=== PATIENT | male | born 1990 | race Caucasian/White ===

== ENCOUNTER 2024-06-18 12:25 | Outpatient (AMB) | payer OTHER, SELFPAY ==
--- NOTE | 2024-06-18 12:28 | MHC.PC.OV ---
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 Allergies No Known Allergies Allergy (Verified 06/18/24 12:30) Medication List - Last Reconciled 06/18/24 by MARY [facility] No Known Home Meds Tobacco use date assessed: 06/18/24 Dental Screening Dental Screen Date: 06/18/24 Did you have a dental visit in the last 12 months?: Yes Did you have a dental problem in the last 6 months where you did not have access to dental care?: No Was dental information given to patient?: Patient has dentist HPI HPI Comments History of Present Illness Details 34-year-old male with family hx skin cancer (dad) Surgery: none Family hx: Dad w/ skin cancer 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 Health Maintenance: Flu admin today Tdap admin today Specialists: Uro Here today as new patient, to est care and for CPE. Previous PCP Dr Dixon - has not been seen in years. no records available to me today Wants uro referral, in September treated for balanitis with oral fluconazole. This did not completely remedy it. He went back to an urgent care fairly recently and had gonorrhea and chlamydia testing what she reports was negative. He was given another oral antifungal or so he thinks. He continues to have the symptoms. He has been applying Vaseline. Otherwise he denies any urinary complaints. Ears - would like hearing test; he is exposed to noise (in band), + tinnitus Optho reports normal w/o glasses. Exam General: Well developed, well nourished, in no acute distress. Appears stated age. Head: Normocephalic, atraumatic. Eyes: Pupils are equal, round and reactive to light and accommodation. Conjunctivae are clear. Vision grossly normal. Ears: TMs clear AU, EACS WNL Nose: Patent, without discharge. Mouth: There are no ulcers or lesions noted. No inflammation, no post nasal drip, no plaques nor exudates. Neck: Supple, no adenopathy or thyromegaly. Lungs: Clear to auscultation bilaterally. No rales, rhonchi or wheeze noted. Good air flow in all cooper. Heart: Regular rate and rhythm. No murmurs, click, rubs or gallops are noted. Abdomen: Bowel sounds present in all quadrants. The abdomen is soft, nontender, with no masses or organomegaly noted. No hernias are noted. 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 Range of motion is observed to be normal. Pulses: Peripheral pulses are equal and palpable bilaterally. Extremities: No clubbing, cyanosis nor edema is noted. Neurologic: Gait and station normal. Cranial Nerves 2-12 intact. Motor strength grossly symmetrical and intact. No sensory loss. Balance normal. Skin: No rashes, ulcers, or lesions noted. Turgor is good. Skin color is good. Hair and nails are without abnormalities. Psych: Normal eye contact, affect and mood appropriate, and normal interactions. Patient is alert and appropriate to context. Plan: Start topical clotrimazole 1% to treat the balanitis b.i.d. times 14 days and refer to Urology. Reviewed STD exposure and screening, patient declined stating that he has had reason STD screening at a walk-in clinic and [place]. Refer to audiology for a hearing test. Refer to dermatology for a skin check given family history of skin cancers infrequent moles. Routine screening labs today. Tdap and influenza administered today. Check with the pharmacy to see if you are due for any other HPV vaccines. Return to the office in 1 year for complete physical exam or sooner should you need anything PFSH Medical History (Updated 06/18/24 @ 15:51 by CHERYL Araujo) No pertinent family history No pertinent past medical history Surgical History (Updated 06/18/24 @ 12:35 by Mgiuel A Logan MA) No pertinent past surgical history Social History (Updated 06/18/24 @ 12:35 by Miguel A Logan MA) Household Members: Family Housing: House Are you a primary home health caregiver to a significant other at home: No Do you presently have visiting nurse or other home services: No Alcohol intake: current Alcohol intake frequency: a few times a month Patient Tobacco Use Status: Never used Tobacco e-Cigarette/Vaping Use: Never Used Second Hand Smoke Exposure: No Current occupational status: employed 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 1. Little interest or pleasure in doing things: not at all 2. Feeling down, depressed, or hopeless: not at all 3. Trouble falling or staying asleep, or sleeping too much: not at all 4. Feeling tired or having little energy: not at all 5. Poor appetite or overeating: not at all 6. Feeling bad about yourself - or that you are a failure or have let yourself or your family down: not at all 7. Trouble concentrating on things, such as reading the newspaper or watching television: not at all 8. Moving or speaking so slowly that other people could have noticed. Or the opposite - being so fidgety or restless that you have been moving around a lot more than usual: not at all 9. Thoughts that you would be better off or of hurting yourself in some way: not at all Total score: 0 Depression Screening Interpretation: Negative Depression Screening Done: Yes 61955 - PHQ-9 Billing: Yes Source: Developed by Drs. Morgan Scales, Yesenia Siddiqui, Duran Ang and colleagues, with an educational loraine from [employer]. Thrive Questionnaire Date Thrive assessed: 06/18/24 I am a: Patient What is your living situation today?: I have a steady place to live Within the past 12 months, did the food you bought not last and you didn't have the money to get more?: Never true Within the past 12 months, did you worry whether your food would run out before you got money to buy more?: Never true Do you have trouble paying for medicines?: No Do you have trouble getting transportation to medical appointments?: No Do you have trouble paying your heating and electricity bill?: No Do you have trouble taking care of your child, family member or friend?: No Do you have trouble with day-to-day activities such as bathing, preparing meals, shopping, managing finances, etc.?: No Are you currently unemployed and looking for a job?: No Are you interested in more education?: No Please select the resources that you would like help with: None Currently or been in a relationship where the following occur: No concerns reported THRIVE Score: 0 AUDIT C Alcohol Use Questionnaire (AUDIT-C) 1. How often do you have a drink containing alcohol?: 2-4 times a month 2. How many drinks containing alcohol do you have on a typical day when you are drinking?: 1 or 2 3. How often do you have six or more drinks on one occasion?: Never Total Score: 2 DOUGLAS-7 AMB Questionnaire DOUGLAS-7 Date DOUGLAS - 7 assessed: 06/18/24 Feeling nervous, anxious, or on edge: 0 = Not at all Not being able to stop or control worryin = Not at all Worrying too much about different things: 0 = Not at all Trouble relaxin = Not at all Being so restless that it is hard to sit still: 0 = Not at all Becoming easily annoyed or irritable: 0 = Not at all Feeling afraid as if something awful might happen: 0 = Not at all Total DOUGLAS-7 score (0-4 normal; 5-9 mild; 10-14 moderate; 15-21 severe): 0 Source: Developed by Drs. Morgan Scales, Yesenia Siddiqui, Duran Ang and colleagues, with an educational loraine from [employer]. DOUGLAS-7 Assessment Billing DOUGLAS-7 Assessment Tool: DOUGLAS-7 Assessment 81470 Physical exam (Primary Care) Vital Signs: Last Vital Signs Temp 97.1 F 06/18/24 12:36 Pulse 56 06/18/24 12:36 Resp 12 06/18/24 12:36 BP 113/70 06/18/24 12:36 Pulse Ox 99 06/18/24 12:36 Oxygen Delivery Method Room Air 06/18/24 12:36 BMI result Body Mass Index 22.5 Tobacco/Smoking Status: Tobacco use Status Tobacco use date assessed 06/18/24 06/18/24 12:38 Patient Tobacco Use Status Never used Tobacco 06/18/24 12:38 e-Cigarette/Vaping Use Never Used 06/18/24 12:38 PHQ-9: PHQ-9 Score PHQ-9: Total score 0 06/18/24 13:31 Depression Screening Interpretation: Negative Thrive Assessment: Date of Thrive Assessment Date Thrive assessed 06/18/24 06/18/24 12:30 Currently or been in a relationship where the following occur: No concerns reported Office Procedures Flu Questionnaire Does the patient have a severe egg allergy?: No Does the patient have severe life threatening allergies?: No Does the patient have a fever or illness today?: No Has the patient ever had Guillain-Tooele Syndrome?: No Has the patient ever had any past reaction to a flu shot?: No Immunizations Fluarix Triv 4555-0032 (PF) 45 mcg (15 mcg x 3)/0.5 mL IM syringe Performing Provider: KOJO Araujo Performing Location: [facility] Administered by: Kalyani Lemos CMA on 06/18/24 13:31 Dose Route Admin Location Dispensed Lot Number Expiration Date [facility] [employer] Seiner 0.5 mL IM Left Deltoid 0.5 mL [id number] 11/17/24 [id number] [employer] VIS Given Date VIS Provided VIS Publication Date 06/18/24 Single Vaccine 20 Eligibility Eligibility Date Funding Source Not VFC Eligible 06/18/24 Private Boostrix Tdap 2.5 Lf unit-8 mcg-5 Lf/0.5 mL intramuscular syringe Performing Provider: KOJO Araujo Performing Location: [facility] Administered by: Kalyani Lemos CMA on 06/18/24 13:31 Dose Route Admin Location Dispensed Lot Number Expiration Date [facility] [employer]iner 0.5 mL IM Left Deltoid 0.5 mL [id number] 06/11/26 [id number] [employer] VIS Given Date VIS Provided VIS Publication Date 06/18/24 Single Vaccine 20 Eligibility Eligibility Date Funding Source Not VFC Eligible 06/18/24 Private Coding Level of Care Code New Pt Prev Care 18-39yr(17272 Diagnoses Encounter for general adult medical examination without abnormal findings Z00.00 Need for Tdap vaccination Z23 Influenza vaccination administered at current visit Z23 Balanitis N48.1 Atypical mole D22.9 Family history of skin cancer Z80.8 Tinnitus of both ears H93.13 Laterality: bilateral Laboratory exam ordered as part of routine general medical examination Z00.00 Additional Codes DOUGLAS-7 Assessment Billing - DOUGLAS-7 Assessment Tool: DOUGLAS-7 Assessment 65641 ([id number]) PHQ-9 - 77984 - PHQ-9 Billing: Yes ([id number]) Assessment & Plan Assessment & Plan (1) Encounter for general adult medical examination without abnormal findings: Code(s): Z00.00 - Encounter for general adult medical examination without abnormal findings (2) Need for Tdap vaccination: Code(s): Z23 - Encounter for immunization Category: Medical (3) Influenza vaccination administered at current visit: Code(s): Z23 - Encounter for immunization Category: Medical (4) Balanitis: Code(s): N48.1 - Balanitis Category: Medical (5) Atypical mole: Code(s): D22.9 - Melanocytic nevi, unspecified Category: Medical (6) Family history of skin cancer: Comment: dad Code(s): Z80.8 - Family history of malignant neoplasm of other organs or systems Category: Medical (7) Tinnitus: Code(s): H93.19 - Tinnitus, unspecified ear Category: Medical Qualifiers: Laterality: bilateral Qualified Code(s): H93.13 - Tinnitus, bilateral (8) Laboratory exam ordered as part of routine general medical examination: Code(s): Z00.00 - Encounter for general adult medical examination without abnormal findings Category: Medical Plan . Orders: Orders Comprehensive Met. Panel Today Z00.00 - Encounter for general adult medical examination without abnormal findings Microalbumin, Random (w Creat) Today Z00.00 - Encounter for general adult medical examination without abnormal findings TSH reflex Free T4 Today Z00.00 - Encounter for general adult medical examination without abnormal findings Vitamin B12 and Folate Today Z00.00 - Encounter for general adult medical examination without abnormal findings Complete Blood Count no Diff Today Z00.00 - Encounter for general adult medical examination without abnormal findings Hemoglobin A1c Today Z00.00 - Encounter for general adult medical examination without abnormal findings Lipid Panel Today Z00.00 - Encounter for general adult medical examination without abnormal findings Influenza 2490-3001 Immunization Today Z23 - Encounter for immunization TDaP Immunization Today Z23 - Encounter for immunization Referrals Urology Referral N48.1 - Balanitis Audiology Referral H93.19 - Tinnitus, unspecified ear Dermatology Referral D22.9 - Melanocytic nevi, unspecified, N48.1 - Balanitis, Z80.8 - Family history of malignant neoplasm of other organs or systems Medications: New clotrimazole 1% 1 appl topical BID 45 grams 0RF 14 days Patient Instructions: Walk-In Care (Urgent Care): We Make it Easy Walk-in for urgent medical issues such as: ? Seasonal Allergies ? Insect Bites ? Cough ? Diarrhea ? Acute Asthma Attacks ? Back, Knee or Joint Pain ? Ear Infection ? Fever without a Rash ? Headaches ? Nausea ? [place] [facility], Rash or Skin Irritation ? Sore Throat ? Sports Physicals ? Vomiting Most insurances are accepted. Patients do not need to be part of the [facility] to seek care at the walk-in clinic. Locations [address] [place] [address] [place] [address] ? [phone] [facility] in [place] provides services to ages 18 and over. Open Sunday-Sunday: 8 a.m. to 5 p.m. and Sunday: 9 a.m. to 3 p.m.* *Hours may vary due to staffing availability. To confirm Walk-In Care hours in [place], please call [phone]. [address] [place] [address] ? [phone] [facility] in [place] provides services to ages 12 and over. Open Sunday-Sunday: 8 a.m. to 5 p.m. Hours may vary due to staffing availability. To confirm Walk-In Care hours in [place], please call [phone]. LABORATORY SERVICES: [facility] ? Primary Location [address] [place] [address] Sunday through Sunday 6:00 AM ? 5:00 PM Sunday 7:00 AM ? 11:00 AM* [phone] The [facility] is centrally located near the front entrance of the [facility] for easy outpatient access. Convenient parking is provided for outpatients. *Hours may vary due to staffing availability. To confirm Laboratory hours for any location, please call [phone]. Offsite Location For your convenience, we offer offsite laboratory draw stations at the following locations: [address] [place], [place] [address] ? [facility] [address], [address], [place] Sunday through Sunday 7:30 AM ? 1:00 PM* [phone] *Hours may vary due to staffing availability. To confirm Laboratory hours for any location, please call [phone]. [place] ? [facility] [address] [facility], [place] Sunday through Sunday 6:00 AM ? 3:30 PM* Sunday 6:30 AM ? 3 PM* [phone] *Hours may vary due to staffing availability. To confirm Laboratory hours for any location, please call [phone]. [address] [facility] Sunday through Sunday 7:30 AM ? 4:00 PM* [phone] *Hours may vary due to staffing availability. To confirm Laboratory hours for any location, please call [phone] [place] [address] Sunday through 9:00 AM ? 4:00 PM* *Hours may vary due to staffing availability. To confirm Laboratory hours for any location, please call [phone]. Appointments are not necessary. Walk-ins are welcome. Like all the departments throughout the [facility], our Lab undergoes frequent reviews to ensure the quality and accuracy of test results, and our staff takes special pride in its status as a nationally accredited facility. Patient Portal: ONE PATIENT. ONE RECORD. BETTER CARE. [facility] has a fully integrated, cutting-edge mobile electronic health information system that has revolutionized the way we care for our patients and manage our organization. This system improves communication and coordination enabling us to provide safe, higher-quality care, and an overall positive experience for staff and patients. Our first priority, as always, is to deliver the highest quality care possible. The system is running in the background supporting that priority. This portal is for all [facility] services and practices. If you are experiencing any technical difficulties with enrolling or logging into the Patient Portal please complete the [facility] Patient Portal Technical Support Form. [facility] now offers a new secure on-line interactive tool for patients to review their health information ? ?Patient Portal. This interactive web portal will enable patients and their families to take an active role in their care by providing easy, secure access to their health information via the internet. The Patient Portal provides patients with instant access to their health information, including laboratory results, medications, allergies, demographic information, visit history, and more. In addition to managing their own care, parents and health care proxies with authorized consent will appreciate the ability to access the records of those individuals for whom they provide care. Please note: if you wish to gain access (Proxy) to another patient?s portal, you will be required to come to the Medical Records Department in person at [facility]. Both the patient giving proxy access and the proxy will need to provide photo identification and complete the appropriate authorization. The Patient Portal also allows track their appointments online. The [facility] Patient Portal also saves patients time by allowing them to submit updates to their demographic and contact information prior to their visits. Portal email notifications will also alert patients to any new activity on their portal, such as test results and new appointments. In order to initially enroll in the [facility] Patient Portal, you will need to enter some required information including the following: your [facility] Medical Record number your personal home email address name date of Please note: In order to enroll in the [facility] Patient Portal, we need to have your email address on file in your electronic medical record. ?The email address needs to be specific for one person (yourself) in order for your Portal enrollment to be successful. ?You can update your email address in person with our Registration staff when you are registering for a hospital visit. ?Otherwise, you will need to come to the Health Information Management (Medical Records) Department at [facility]. ?We are open from Sunday ? Sunday from 7:30 a.m. ? 4:30 p.m. ?You will be required to present a photo id. Once you have successfully enrolled in the Patient Portal, you will receive a one-time user id and password for the Portal, sent to your email address. ?This will allow you to log into the Patient Portal within 99 hrs and reset your own logon id and password, and define personal security questions. ?Once your permanent login and password have been set, you can log into the [facility] Patient Portal at any time via the blue button above or from the Portal Logon button on any page of the [facility] website. [facility] encourage all of our patients to enroll in Patient Portal as it presents a valuable opportunity for patients and their families to actively participate in their care and stay healthy Welcome to [facility]. ?We look forward to working with you. Health screenings for men You should visit your health care provider regularly, even if you feel healthy. The purpose of these visits is to: Screen for medical issues Assess your risk for future medical problems Encourage a healthy lifestyle Update vaccinations and other preventive care services Help you get to know your provider in case of an illness Information Even if you feel fine, you should still see your provider for regular checkups. These visits can help you avoid problems in the future. For example, the only way to find out if you have high blood pressure is to have it checked regularly. High blood sugar and high cholesterol level also may not have any symptoms in the early stages. Simple blood tests can check for these conditions. There are specific times when you should see your provider or receive specific health screenings. The [place] Preventive Services Task Force publishes a list of recommended screenings. Below are screening guidelines for men ages 40 to 64. BLOOD PRESSURE SCREENING Have your blood pressure checked at least once every year. Watch for blood pressure screenings in your area. Ask your provider if you can stop in to have your blood pressure checked. Ask your provider if you need your blood pressure checked more often if: You have diabetes, heart disease, kidney problems, or are overweight or have certain other health conditions You have a first-degree relative with high blood pressure You are Black Your blood pressure top number is from 120 to 129 mm Hg, or the bottom number is from 70 to 79 mm Hg If the top number is 130 mm Hg or greater or the bottom number is 80 mm Hg or greater, this is considered stage 1 hypertension. Schedule an appointment with your provider to learn how you can lower your blood pressure. Effects of age on blood pressure CHOLESTEROL SCREENING Cholesterol screening should begin at age 35 for men with no known risk factors for coronary heart disease. Repeat cholesterol screening should take place: Every 5 years for men with normal cholesterol levels More often if changes occur in lifestyle (including weight gain and diet) More often if you have diabetes, heart disease, kidney problems, or certain other conditions COLORECTAL CANCER SCREENING If you are under age 45, talk to your provider about getting screened. You may need to be screened if you have a strong family history of colon cancer or polyps. Screening may also be considered if you have risk factors such as a history of inflammatory bowel disease or polyps. If you are age 45 to 75, you should be screened for colorectal cancer. There are several screening tests available: A stool-based fecal occult blood (gFOBT) or fecal immunochemical test (FIT) every year A stool sDNA test every 1 to 3 years Flexible sigmoidoscopy every 5 years or every 10 years with stool testing FIT done every year CT colonography (virtual colonoscopy) every 5 years Colonoscopy every 10 years You may need a colonoscopy more often if you have risk factors for colorectal cancer, such as: Ulcerative colitis A personal or family history of colorectal cancer A history of growths in your colon called adenomatous polyps DENTAL EXAM Go to the dentist once or twice every year for an exam and cleaning. Your dentist will evaluate if you have a need for more frequent visits. DIABETES SCREENING All adults who do not have risk factors for diabetes should be screened starting at age 35 and repeated every 3 years. If you have other risk factors for diabetes, such as a first degree relative with diabetes, overweight or obesity, high blood pressure, prediabetes, or a history of heart disease, you may be tested more often. If you are overweight and have other risk factors, such as high blood pressure and are planning to become , screening is recommended. EYE EXAM Have an eye exam every 2 to 4 years ages 40 to 54 and every 1 to 3 years ages 55 to 64. Your provider may recommend more frequent eye exams if you have vision problems or glaucoma risk. Have an eye exam that includes an examination of your retina (back of your eye) at least every year if you have diabetes. IMMUNIZATIONS Commonly needed vaccines include: Flu shot: get one every year COVID-19 vaccine: ask your provider what is best for you Tetanus-diphtheria and acellular pertussis (Tdap) vaccine: have as one of your tetanus-diphtheria vaccines if you did not receive it as an adolescent Tetanus-diphtheria: have a booster (or Tdap) every 10 years Varicella vaccine: receive 2 doses if you never had chickenpox or the varicella vaccine and were born in 1980 or after Hepatitis B vaccine: receive 2, 3, or 4 doses, depending on your exact circumstances, if you did not receive these as a child or adolescent, until age 59 Shingles (herpes zoster) vaccine: at or after age 50 Ask your provider if you should receive other immunizations, especially if you have certain medical conditions, such as diabetes or are at increased risk for some diseases such as pneumonia. INFECTIOUS DISEASE SCREENING Screening for hepatitis C: all adults ages 18 to 79 should get a one-time test for hepatitis C. Screening for human immunodeficiency virus (HIV): all people ages 15 to 65 should get a one-time test for HIV. Depending on your lifestyle and medical history, you may need to be screened for infections such as syphilis, chlamydia, and other infections. LUNG CANCER SCREENING You should have an annual screening for lung cancer with low-dose computed tomography (LDCT) if: You are age 50 to 80 years AND You have a 20 pack-year smoking history AND You currently smoke or have quit within the past 15 years OSTEOPOROSIS SCREENING If you are age 50 to 64 and have risk factors for osteoporosis, you should discuss screening with your provider. Risk factors can include long-term steroid use, low body weight, smoking, heavy alcohol use, having a fracture after age 50, or a family history of hip fracture or osteoporosis. Osteoporosis PHYSICAL EXAM All adults should visit their provider from time to time, even if they are healthy. The purpose of these visits is to: Screen for diseases Assess risk of future medical problems Encourage a healthy lifestyle Update vaccinations and other preventive care services Maintain a relationship with a provider in case of an illness Your height, weight, and body mass index (BMI) should be checked at every exam. During your exam, your provider may ask you about: Depression and anxiety Diet and exercise Alcohol and tobacco use Safety, such as use of seat belts and smoke detectors Your medicines and risk for interactions PROSTATE CANCER SCREENING If you're 55 through 69 years old, before having the test, talk to your provider about the pros and cons of having a PSA test. Ask about: Whether screening decreases your chance of dying from prostate cancer. Whether there is any harm from prostate cancer screening, such as side effects from testing or overtreatment of cancer when discovered. Whether you have a higher risk of prostate cancer than others. If you are age 55 or younger, screening is not generally recommended. You should talk with your provider about if you have a higher risk for prostate cancer. Risk factors include: Having a family history of prostate cancer (especially a brother or father) Being If you choose to be tested, the PSA blood test is repeated over time (yearly or less often), though the best frequency is not known. Prostate examinations are no longer routinely done on men with no symptoms. Prostate cancer SKIN EXAM Your provider may check your skin for signs of skin cancer, especially if you're at high risk. People at high risk include those who have had skin cancer before, have close relatives with skin cancer, or have a weakened immune system. TESTICULAR EXAM The [place] Preventive Services Task Force (USPSTF) now recommends against performing testicular self-exams. Doing testicular self-exams has been shown to have little to no benefit.
[2024-06-18 12:36] VITALS: BP 113/70; PULSE 56; RESP 12; TEMP 36.2; O2SAT 99; BMI 22.5
== END 2024-06-18 13:29 | disposition home or self-care (01) ==
PROVIDERS: PCP Nurse Practitioner Family; Visit Provider Nurse Practitioner Family
DX: Z00.00 Encounter for general adult medical examination without abnormal findings (principal); Z23 Encounter for immunization; N48.1 Balanitis; D22.9 Melanocytic nevi, unspecified; Z80.8 Family history of malignant neoplasm of other organs or systems; H93.13 Tinnitus, bilateral

== ENCOUNTER → 2024-06-18 12:25 | Outpatient (BNVA) | payer OTHER, SELFPAY | PROVIDERS: PCP Nurse Practitioner Family; Visit Provider Nurse Practitioner Family | DX: Z00.00 Encounter for general adult medical examination without abnormal findings (principal); N48.1 Balanitis; D22.9 Melanocytic nevi, unspecified; Z80.8 Family history of malignant neoplasm of other organs or systems; H93.13 Tinnitus, bilateral; Z23 Encounter for immunization | CPT/HCPCS: 90471; 90472; 90656; 90715; 96127; 99385 ==

== ENCOUNTER 2024-06-18 13:34 | Outpatient (REF) | payer OTHER, SELFPAY ==
[2024-06-18 17:48] LABS: Hematocrit 42.6 % (42.0-52.0); Hemoglobin 14.8 g/dl (14.0-18.0); Mean Corpuscular HGB Conc 34.7 g/dl (31.0-36.0); Mean Corpuscular Hemoglobin 29.9 pg (27.0-33.0); Mean Corpuscular Volume 86.1 fL (80.0-98.0); Platelet Count 334 X10*3/uL (160-400); Red Blood Count 4.95 X10*6/uL (4.60-5.80); Red Cell Distribution Width 11.9 % (11.0-16.0); White Blood Count 8.8 X10*3/uL (4.8-10.8)
[2024-06-18 18:13] LABS: Creatinine Urine 145.16 mg/dL; Microalbum/Creatinine Ratio Ur 4.1 ug/mg cr (<30)
[2024-06-18 18:21] LABS: Alanine Aminotransferase 33 U/L (0-40); Albumin Level 4.6 g/dL (3.5-5.0); Alkaline Phosphatase 74 U/L (39-117); Anion Gap 11 (12-20); Aspartate Amino Transferase 24 U/L (5-37); Bilirubin Total 0.4 mg/dL (0.0-1.0); Blood Urea Nitrogen 12 mg/dL (9-16); Calcium 9.5 mg/dL (8.4-10.2); Carbon Dioxide 26 mmol/L (22-29); Chloride 104 mmol/L (96-108); Cholesterol 201 mg/dL (<200); Estimated Glomerular Filt Rate > 60; Glucose Random 90 mg/dL (60-115); HDL Cholesterol 45 mg/dL (>40); LDL Cholesterol Calculated 122 mg/dL (<100); Sodium 137 mmol/L (135-145); Total Protein 8.1 g/dL (6.5-8.0); Triglycerides 172 mg/dL (<150)
[2024-06-18 18:38] LABS: Folate 19.4 ng/mL (> or = 4.0); Vitamin B12 373 pg/mL (200-900)
[2024-06-19 05:16] LABS: Estimated Average Glucose 97 mg/dL; Hemoglobin A1C 118.7212 umol/L; Total Hemoglobin (HGBA1C) 3835.8294 umol/L
== END 2024-06-18 13:35 | disposition home or self-care (01) ==
LOC: HO.WFDLDS 13:34
PROVIDERS: Visit Provider Nurse Practitioner Family
DX: Z00.00 Encounter for general adult medical examination without abnormal findings (principal)
CPT/HCPCS: 36415; 80053; 80061; 82043; 82570; 82607; 82746; 83036; 84443; 85027

== ENCOUNTER → 2024-06-25 08:09 | Outpatient (REF) | payer OTHER, SELFPAY | END | disposition home or self-care (01) | LOC: HO.SH 08:09 | PROVIDERS: PCP Family Medicine; Visit Provider Nurse Practitioner Family | DX: Z01.118 Encounter for examination of ears and hearing with other abnormal findings (principal); H93.13 Tinnitus, bilateral | CPT/HCPCS: 92557; 92567; 92588 ==

== ENCOUNTER 2024-08-20 09:01 | Outpatient (AMB) | payer OTHER, SELFPAY ==
--- NOTE | 2024-08-20 09:05 | MHC.OFFVIS ---
Intake Visit Reasons: balanitis Intake Note: New patient presents today for initial visit for balanitis Urology Medication:none Blood Thinner:none Antibiotic Allergies:none Allergies No Known Allergies Allergy (Verified 08/20/24 09:09) HPI Comments Details: Gómez Wharton is a very pleasant 34-year-old male patient of Dr. Santos. He presents to the office today as a new patient for balanitis. In discussion with the patient today reports symptoms initially started September of last year where he noted irritation and redness to the gland of his penis the morning after sexual activity with his girlfriend. He reports having followed up with urgent care as well as PCP in discussing referral to Urology for further assessment evaluation. In assessment of the patient today the penis is uncircumcised upon retraction of penile foreskin and there is very mild irritation noted to the meatus otherwise no open areas, lesions, and or drainage noted. We discussed at length potential causes of balanitis as well as further treatment options and risks and benefits of these treatment options. In office urinalysis results reviewed with the patient today. He otherwise denies any bothersome urinary issues. He denies urinary urgency, urinary frequency, incontinence, nocturia, hematuria, dysuria, foul smelling urine, changes to urinary stream, flank pain, fever, and or chills. He is happy with his current voiding parameters. We discussed proper care of area. He otherwise offers no other issues or concerns at this time. [facility] Medical History No pertinent past medical history No pertinent family history Surgical History No pertinent past surgical history Social History Household Members: Family Both parents involved: Yes Caregiver staying overnight: No Housing: House Are you a primary childcare attendant to a significant other at home: No Do you presently have visiting nurse or other home services: No 75 years or older and lives alone: No Alcohol intake: current Alcohol intake frequency: a few times a month Patient Tobacco Use Status: Never used Tobacco e-Cigarette/Vaping Use: Never Used Second Hand Smoke Exposure: No Current occupational status: employed 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 Cognitive needs: No Hearing needs: No Vision needs: No Review of Systems Const All systems reviewed & are unremarkable except as noted in HPI and below Physical Exam Const General: cooperative, healthy appearing, comfortable, no acute distress, well developed, alert and awake Nutritional Appearance: average body habitus Orientation/consciousness: patient oriented x3 Limitations: no limitations HEENT Head: Yes normal to inspection, Yes normocephalic and Yes atraumatic Ears: hearing grossly normal bilaterally Eyes General: appearance normal, both eyes and all related structures Neck Neck: Yes normal visual inspection and Yes trachea midline Chest Chest palpation & inspection: normal inspection of the chest Resp Effort & Inspection: normal respiratory effort and able to speak in complete sentences Cardio Rate: regular rate GI Inspection: Yes normal to inspection General: Yes no CVA tenderness Back/Spine/Pelvis Back: no CVA tenderness Skin General skin exam: no rashes or lesions noted Neuro General: patient oriented x3 Extrem General: Yes normal to inspection Psych Appearance: grossly normal and well kempt Mental Status: mental status grossly normal Speech and movement: Normal speech and movement present and Clear speech present Affect: normal affect Attitude: cooperative Thought process: Normal thought process present Thought content: Normal thought content present Insight: Fair insight present (Psych) Judgement: Fair judgement present (Psych) Assessment & Plan Assessment & Plan (1) Balanitis: Code(s): N48.1 - Balanitis Category: Medical Plan In office urinalysis results reviewed with the patient today; as noted above. We discussed proper hygiene and area We discussed potential causes and treatment options of balanitis He denies any bothersome urinary issues or concerns. He reports be happy with current voiding parameters. Start clotrimazole-betamethasone 1-0.05 % as discussed and prescribed. Follow-up in 1-3 months; or sooner with any issues, concerns, and or questions. Medications: New clotrimazole-betamethasone 1-0.05 % Apply thin coat 2 times per day 1 appl topical BID 4 weeks 45 grams 0RF N48.1 - Balanitis Patient Instructions: The patient had an opportunity to ask questions regarding the treatment plan. All questions were answered. Physical exam, labs, and imaging were discussed and reviewed in detail. As well as risks, benefits, and discussion of treatment choices. No major barriers to understanding were identified. The patient expressed understanding and agreement with the above treatment plan. The patient was made aware they should contact our office by phone for worsening of their current condition, the appearance of new symptoms, or with any questions or concerns. Compliance is encouraged with any medications and follow up testing that is ordered. It is a privilege to be allowed the opportunity to participate in? your urological care.? Again, if you have any questions or concerns If you have any questions or concerns please do not hesitate to contact me. The office is [phone]. This note is constructed using voice recognition software. While every effort has been made to ensure accuracy dish cloth inspector errors may have been included. Yours sincerely, KOJO Davalos Coding Level of Care Code New Pt Level 4 (84181) Diagnoses Balanitis N48.1
== END 2024-08-20 09:34 | disposition home or self-care (01) ==
LOC: HO.HUSH 09:02
PROVIDERS: PCP Family Medicine; Visit Provider Nurse Practitioner Family
DX: N48.1 Balanitis (principal); Z13.9 Encounter for screening, unspecified
CPT/HCPCS: 99204

== ENCOUNTER → 2024-08-20 09:01 | Outpatient (BNVA) | payer OTHER, SELFPAY | PROVIDERS: PCP Family Medicine; Visit Provider Nurse Practitioner Family | DX: N48.1 Balanitis (principal) | CPT/HCPCS: 81003; 99202 ==

== ENCOUNTER 2024-10-31 10:28 | Outpatient (AMB) | payer OTHER, SELFPAY ==
--- NOTE | 2024-10-31 10:35 | MHC.PC.OV ---
Vital Signs 10/31/24 10:36 Height 5 ft 11 in Weight 158 lb 2 oz BMI 22.1 BP 90/60 Blood Pressure Location Rt brachial Position Sitting Respiration 14 Pulse 74 Pulse Source Pulse Oximeter Temp 97.8 F Temp Source Oral Pulse Oximetry (%) 96 Oxygen Delivery Method Room Air Intake Visit Reasons: ED Follow-up /[facility] Intake Note: patient is scheduled to follow up with pcp for ed discharge for abd pain Poker Prop Player Required: No Allergies No Known Allergies Allergy (Verified 10/31/24 10:35) Tobacco use date assessed: 06/18/24 Dental Screening Dental Screen Date: 06/18/24 HPI ED Follow-up /[facility] HPI Details 34 y/o male presents to f/u ED visit for abd. pain. He notes a couple days before his visit he had headaches, chills. Pt notes he had been drinking alcohol along with tylenol. He notes CT scan had not been performed. Abd. pain had been improving. Labs had shown elevated liver enzymes. He notes abd. pain seems to be associated with food/drinking. [facility] Medical History No pertinent past medical history No pertinent family history Surgical History No pertinent past surgical history Social History Household Members: Family Both parents involved: Yes Caregiver staying overnight: No Housing: House Are you a primary career transition specialist to a significant other at home: No Do you presently have visiting nurse or other home services: No 75 years or older and lives alone: No Alcohol intake: current Alcohol intake frequency: a few times a month Patient Tobacco Use Status: Never used Tobacco e-Cigarette/Vaping Use: Never Used Second Hand Smoke Exposure: No Current occupational status: employed 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 Cognitive needs: No Hearing needs: No Vision needs: No Questionnaire Thrive Questionnaire Date Thrive assessed: 06/15/24 I am a: Patient What is your living situation today?: I have a steady place to live Within the past 12 months, did the food you bought not last and you didn't have the money to get more?: Never true Within the past 12 months, did you worry whether your food would run out before you got money to buy more?: Never true Do you have trouble paying for medicines?: No Do you have trouble getting transportation to medical appointments?: No Do you have trouble paying your heating and electricity bill?: No Do you have trouble taking care of your child, family member or friend?: No Do you have trouble with day-to-day activities such as bathing, preparing meals, shopping, managing finances, etc.?: No Are you currently unemployed and looking for a job?: No Are you interested in more education?: No Please select the resources that you would like help with: None Currently or been in a relationship where the following occur: No concerns reported THRIVE Score: 0 DOUGLAS-7 AMB Questionnaire DOUGLAS-7 Date DOUGLAS - 7 assessed: 06/18/24 Source: Developed by Drs. Morgan Scales, Yesenia Siddiqui, Duran Ang and colleagues, with an educational loraine from [employer]. Review of Systems Const Denies chills, Denies fatigue, Denies fever(s), Denies headache(s) and Denies weakness ENT Denies dizziness and Denies headache(s) Card Denies dyspnea Resp Denies cough, Denies dyspnea, Denies wheezing and Denies other (shortness of breath) Musc Denies numbness and Denies tingling Neuro Denies dizziness, Denies headache(s), Denies numbness, Denies tingling and Denies weakness Psych Denies anxiety and Denies depression Endo Denies fatigue Aller/Immun Denies wheezing Physical exam (Primary Care) Vital Signs: Last Vital Signs Temp 97.8 F 10/31/24 10:36 Pulse 74 10/31/24 10:36 Resp 14 10/31/24 10:36 BP 90/60 10/31/24 10:36 Pulse Ox 96 10/31/24 10:36 Oxygen Delivery Method Room Air 10/31/24 10:36 BMI result Body Mass Index 22.1 Tobacco/Smoking Status: Tobacco use Status Tobacco use date assessed 06/18/24 10/31/24 10:39 Patient Tobacco Use Status Never used Tobacco 10/31/24 10:39 e-Cigarette/Vaping Use Never Used 10/31/24 10:39 Thrive Assessment: Date of Thrive Assessment Date Thrive assessed 06/15/24 10/31/24 10:39 Currently or been in a relationship where the following occur: No concerns reported Const General: well developed; No acute distress Nutritional Appearance: well nourished Orientation/consciousness: patient oriented x3 [facility] Head: Yes normocephalic and Yes atraumatic Eyes General: appearance normal, both eyes and all related structures Pupils: Equal, round and reactive pupils present EOM: EOMs intact bilaterally Resp Effort & Inspection: normal respiratory effort Auscultation: clear to auscultation bilaterally Cardio Rate: regular rate Rhythm: regular rhythm Heart sounds: S1 normal heart sound present, S2 normal heart sound present, no gallops, no murmurs and no rubs Neuro General: patient oriented x3 and gait normal Cranial nerves: Yes Equal, round and reactive pupils present Psych Affect: normal affect Coding Level of Care Code Est Pt Level 3 (57198) Diagnoses Abdominal pain R10.9 Elevated liver enzymes R74.8 Assessment & Plan Assessment & Plan (1) Abdominal pain: Code(s): R10.9 - Unspecified abdominal pain Category: Medical (2) Elevated liver enzymes: Code(s): R74.8 - Abnormal levels of other serum enzymes Category: Medical Plan Left?lower?quadrant?discomfort. Patient?notes?that?he?feels?sick?the?day?prior?to?this.??He?also?took?some?Tylenol?and?also?drank?alcohol. Left?lower?quadrant?pain?likely?secondary?to?a?gastroenteritis?or?colitis. Elevated?liver?enzymes?likely?related?to?Tylenol?and?alcohol?but?doubt?this?is?related?to?his?left?lower?quadrant?pain. Will?have?him?try?some?bowel?rest; clear?liquids?for?the?rest?today?then?advance?diet?as?tolerated?tomorrow. Avoid?alcohol?and?Tylenol. Avoid?hard?to?digest?foods,?acidic?foods?and?spicy?foods. He?will?repeat?liver?enzymes?prior?to?follow-up?visit?in?couple?of?weeks. If?he?is?still?having?difficulty?with?left?lower?quadrant?pain?or?liver?enzymes?are?not?coming?down,?will?refer?to?GI Orders: Orders Complete Blood Count Auto Diff Today R10.9 - Unspecified abdominal pain, Z00.00 - Encounter for general adult medical examination without abnormal findings Comprehensive Met. Panel Today R74.8 - Abnormal levels of other serum enzymes UA CC w/rflx Micro + Cult Today Z00.00 - Encounter for general adult medical examination without abnormal findings
[2024-10-31 10:36] VITALS: BP 90/60; PULSE 74; RESP 14; TEMP 36.6; O2SAT 96; BMI 22.1
== END 2024-10-31 10:57 | disposition home or self-care (01) ==
LOC: HO.HMCFM 10:29
PROVIDERS: PCP Family Medicine; Visit Provider Family Medicine
DX: R10.9 Unspecified abdominal pain (principal); R74.8 Abnormal levels of other serum enzymes

== ENCOUNTER → 2024-10-31 10:28 | Outpatient (BNVA) | payer OTHER, SELFPAY | PROVIDERS: PCP Family Medicine; Visit Provider Family Medicine | DX: R10.9 Unspecified abdominal pain (principal); R74.8 Abnormal levels of other serum enzymes | CPT/HCPCS: 99212 ==

== ENCOUNTER 2024-11-20 09:39 | Outpatient (AMB) | payer OTHER, SELFPAY ==
--- NOTE | 2024-11-20 09:48 | MHC.OFFVIS ---
Intake Visit Reasons: 3m follow up Intake Note: Patient presents today for follow up visit for balanitis Urology Medication:none Blood Thinner:none Antibiotic Allergies:none Usps Letter Carrier Required: No Accompanied by: Self / Same As Patient Allergies No Known Allergies Allergy (Verified 11/20/24 10:39) Medication List - Last Reconciled 11/20/24 by KOJO Davalos No Known Home Meds HPI Comments Details: Gómez Wharton is a very pleasant 34-year-old male patient of Dr. Santos. He presents to the office today for follow-up of his balanitis. In discussion with the patient today he does report improvement in balanitis. He reports also following up with dermatology and [place]. In assessment of the patient today no abnormalities noted within the area. Previous redness that was noted on the meatus has since resolved. He reports feeling symptoms improve when he lessens the amount of hygiene he is providing to the area. We did discussed proper hygiene. He otherwise denies any bothersome urinary issues. He denies urinary urgency, urinary frequency, incontinence, nocturia, hematuria, dysuria, foul smelling urine, changes to urinary stream, flank pain, fever, and or chills. He is happy with his current voiding parameters. In office urinalysis results reviewed with the patient today. He otherwise offers no other issues or concerns at this time. [facility] Medical History No pertinent past medical history No pertinent family history Surgical History No pertinent past surgical history Social History Household Members: Family Both parents involved: Yes Caregiver staying overnight: No Housing: House Are you a primary animal caretaker supervisor to a significant other at home: No Do you presently have visiting nurse or other home services: No 75 years or older and lives alone: No Alcohol intake: current Alcohol intake frequency: a few times a month Patient Tobacco Use Status: Never used Tobacco e-Cigarette/Vaping Use: Never Used Second Hand Smoke Exposure: No Current occupational status: employed 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 Cognitive needs: No Hearing needs: No Vision needs: No Review of Systems Const All systems reviewed & are unremarkable except as noted in HPI and below Physical Exam Const General: cooperative, healthy appearing, comfortable, no acute distress, well developed, alert and awake Nutritional Appearance: average body habitus Orientation/consciousness: patient oriented x3 Limitations: no limitations HEENT Head: Yes normal to inspection, Yes normocephalic and Yes atraumatic Ears: hearing grossly normal bilaterally Eyes General: appearance normal, both eyes and all related structures Neck Neck: Yes normal visual inspection and Yes trachea midline Chest Chest palpation & inspection: normal inspection of the chest Resp Effort & Inspection: normal respiratory effort and able to speak in complete sentences Cardio Rate: regular rate GI Inspection: Yes normal to inspection General: Yes no CVA tenderness Back/Spine/Pelvis Back: no CVA tenderness Skin General skin exam: no rashes or lesions noted Neuro General: patient oriented x3 Extrem General: Yes normal to inspection Psych Appearance: grossly normal and well kempt Mental Status: mental status grossly normal Speech and movement: Normal speech and movement present and Clear speech present Affect: normal affect Attitude: cooperative Thought process: Normal thought process present Thought content: Normal thought content present Insight: Fair insight present (Psych) Judgement: Fair judgement present (Psych) Results AMB Urinalysis, Automated UA Leukoctes 0 Leah/uL Last Edit by Jaylin Philippe [facility] on 11/20/24 10:20 UA Nitrite Last Edit by Jaylin Philippe [facility] on 11/20/24 10:20 UA Urobilinogen 0.2 mg/dL Last Edit by Jaylin Philippe [facility] on 11/20/24 10:20 UA Protein 0 mg/dL Last Edit by Jaylin Philippe [facility] on 11/20/24 10:20 UA pH 6.0 Last Edit by Jaylin Philippe [facility] on 11/20/24 10:20 UA Blood 0 Ramírez/uL Last Edit by Jaylin Philippe [facility] on 11/20/24 10:20 UA Specific [place] 1.015 Last Edit by Jaylin Philippe [facility] on 11/20/24 10:20 UA Ketone Last Edit by Jaylin Philippe [facility] on 11/20/24 10:20 UA Bilirubin 0 mg/dL Last Edit by Jaylin Philippe [facility] on 11/20/24 10:20 UA Glucose 0 mg/dL Last Edit by ROSALIE Geller on 11/20/24 10:20 Results Reviewed Results Reviewed: Laboratory Last Values Urine pH (Auto) 6.0 11/20/24 10:19 Specific [place] (Auto) 1.015 11/20/24 10:19 Urine Protein (Auto) 0 mg/dL 11/20/24 10:19 Glucose (UA)(Auto) 0 mg/dL 11/20/24 10:19 Urine Blood (Auto) 0 Ramírez/uL 11/20/24 10:19 Urine Bilirubin (Auto) 0 mg/dL 11/20/24 10:19 Urine Urobilinogen (Auto) 0.2 mg/dL 11/20/24 10:19 Leukocyte Esterase (Auto) 0 Leah/uL 11/20/24 10:19 Assessment & Plan Assessment & Plan (1) Balanitis: Code(s): N48.1 - Balanitis Category: Medical Plan In office urinalysis results with the patient today; as noted above. Balanitis has since resolved. We did discussed proper care of the area. He currently denies any bothersome urinary issues or concerns. He reports be happy with current voiding parameters. Follow-up PRN Orders: Orders AMB Urinalysis Automated Today Z13.9 - Encounter for screening, unspecified Patient Instructions: The patient had an opportunity to ask questions regarding the treatment plan. All questions were answered. Physical exam, labs, and imaging were discussed and reviewed in detail. As well as risks, benefits, and discussion of treatment choices. No major barriers to understanding were identified. The patient expressed understanding and agreement with the above treatment plan. The patient was made aware they should contact our office by phone for worsening of their current condition, the appearance of new symptoms, or with any questions or concerns. Compliance is encouraged with any medications and follow up testing that is ordered. It is a privilege to be allowed the opportunity to participate in? your urological care.? Again, if you have any questions or concerns If you have any questions or concerns please do not hesitate to contact me. The office is [phone]. This note is constructed using voice recognition software. While every effort has been made to ensure accuracy emergency generator mechanic errors may have been included. Yours sincerely, Valarie Pabon, HAIRSPRING ADJUSTER-BC Coding Level of Care Code Est Pt Level 3 (04781) Diagnoses Balanitis N48.1
== END 2024-11-20 10:20 | disposition home or self-care (01) ==
LOC: HO.HUSH 09:40
PROVIDERS: PCP Family Medicine; Visit Provider Nurse Practitioner Family
DX: Z13.9 Encounter for screening, unspecified (principal); N48.1 Balanitis
CPT/HCPCS: 99213

== ENCOUNTER → 2024-11-20 09:39 | Outpatient (BNVA) | payer OTHER, SELFPAY | PROVIDERS: PCP Family Medicine; Visit Provider Nurse Practitioner Family | DX: N48.1 Balanitis (principal) | CPT/HCPCS: 81003; 99212 ==

== ENCOUNTER 2024-12-03 13:42 | Outpatient (REF) | payer OTHER, SELFPAY ==
[2024-12-03 14:47] LABS: MANUAL DIFF FLAG NO
[2024-12-03 14:56] LABS: Hematocrit 43.8 % (42.0-52.0); Hemoglobin 14.7 g/dl (14.0-18.0); Imm Gran Abs Auto 0.02 X10*3/uL (0.00-0.03); Imm Gran Pct Auto 0.3 % (0.0-0.4); Lymphocytes Absolute Auto 3.4 X10*3/uL (1.2-4.9); Mean Corpuscular HGB Conc 33.6 g/dl (31.0-36.0); Mean Corpuscular Hemoglobin 29.1 pg (27.0-33.0); Mean Corpuscular Volume 86.7 fL (80.0-98.0); NRBC Abs Auto 0.000 X10*3/uL (0.0-0.012); NRBC Pct Auto 0.0 /100WBC (0.0-0.2); Platelet Count 259 X10*3/uL (160-400); Red Blood Count 5.05 X10*6/uL (4.60-5.80); White Blood Count 7.6 X10*3/uL (4.8-10.8)
[2024-12-03 15:15] LABS: Appearance Urine Clear; Glucose Urine UA Negative (Negative); PH 5.5 (5.0-9.0); Specific Gravity - Urine 1.020 (1.005-1.025)
[2024-12-03 15:36] LABS: Alanine Aminotransferase 30 U/L (0-40); Albumin Level 4.7 g/dL (3.5-5.0); Alkaline Phosphatase 77 U/L (39-117); Anion Gap 10 (12-20); Aspartate Amino Transferase 23 U/L (5-37); Blood Urea Nitrogen 11 mg/dL (9-16); Calcium 8.9 mg/dL (8.4-10.2); Carbon Dioxide 28 mmol/L (22-29); Chloride 105 mmol/L (96-108); Estimated Glomerular Filt Rate > 60; Potassium 3.8 mmol/L (3.3-5.1); Sodium 139 mmol/L (135-145); Total Protein 7.4 g/dL (6.5-8.0)
== END 2024-12-03 13:43 | disposition home or self-care (01) ==
LOC: HO.WFDLDS 13:42
PROVIDERS: Visit Provider Family Medicine
DX: Z00.00 Encounter for general adult medical examination without abnormal findings (principal); R74.8 Abnormal levels of other serum enzymes; R10.9 Unspecified abdominal pain
CPT/HCPCS: 36415; 80053; 81003; 85025

== ENCOUNTER 2024-12-04 17:14 | Outpatient (AMB) | payer OTHER, SELFPAY ==
--- NOTE | 2024-12-04 17:03 | MHC.PC.OV ---
Intake Visit Reasons: f/u liver enzymes, labs Intake Note: patient is scheduled to review lab results with pcp Allergies No Known Allergies Allergy (Verified 12/04/24 17:13) Medication List - Last Reconciled 12/04/24 by Chilango Santos MD No Known Home Meds Tobacco use date assessed: 06/18/24 Dental Screening Dental Screen Date: 06/18/24 HPI f/u liver enzymes, labs HPI Details 34 y/o male presents to f/u labs, liver enzymes. Labs drawn 12/03/24. Reviewed labs with pt. Liver enzymes improved - AST 23, ALT 30. No recent lipid panel. [facility] Medical History No pertinent past medical history No pertinent family history Surgical History No pertinent past surgical history Social History Household Members: Family Both parents involved: Yes Caregiver staying overnight: No Housing: House Are you a primary home care giver to a significant other at home: No Do you presently have visiting nurse or other home services: No 75 years or older and lives alone: No Alcohol intake: current Alcohol intake frequency: a few times a month Patient Tobacco Use Status: Never used Tobacco e-Cigarette/Vaping Use: Never Used Second Hand Smoke Exposure: No Current occupational status: employed 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 Cognitive needs: No Hearing needs: No Vision needs: No Questionnaire Thrive Questionnaire Date Thrive assessed: 06/15/24 I am a: Patient What is your living situation today?: I have a steady place to live Within the past 12 months, did the food you bought not last and you didn't have the money to get more?: Never true Within the past 12 months, did you worry whether your food would run out before you got money to buy more?: Never true Do you have trouble paying for medicines?: No Do you have trouble getting transportation to medical appointments?: No Do you have trouble paying your heating and electricity bill?: No Do you have trouble taking care of your child, family member or friend?: No Do you have trouble with day-to-day activities such as bathing, preparing meals, shopping, managing finances, etc.?: No Are you currently unemployed and looking for a job?: No Are you interested in more education?: No Please select the resources that you would like help with: None Currently or been in a relationship where the following occur: No concerns reported THRIVE Score: 0 DOUGLAS-7 AMB Questionnaire DOUGLAS-7 Date DOUGLAS - 7 assessed: 06/18/24 Source: Developed by Drs. Morgan Scales, Yesenia Siddiqui, Duran Ang and colleagues, with an educational loraine from [employer]. Review of Systems Const Denies chills, Denies fatigue, Denies fever(s), Denies headache(s) and Denies weakness ENT Denies dizziness and Denies headache(s) Card Denies dyspnea Resp Denies cough, Denies dyspnea, Denies wheezing and Denies other (shortness of breath) Musc Denies numbness and Denies tingling Neuro Denies dizziness, Denies headache(s), Denies numbness, Denies tingling and Denies weakness Psych Denies anxiety and Denies depression Endo Denies fatigue Aller/Immun Denies wheezing Physical exam (Primary Care) Tobacco/Smoking Status: Tobacco use Status Tobacco use date assessed 06/18/24 12/04/24 17:03 Patient Tobacco Use Status Never used Tobacco 12/04/24 17:03 e-Cigarette/Vaping Use Never Used 12/04/24 17:03 Thrive Assessment: Date of Thrive Assessment Date Thrive assessed 06/15/24 12/04/24 17:03 Currently or been in a relationship where the following occur: No concerns reported Telehealth Telehealth Telehealth Platform: Telephone Location of provider rendering services: practice address Location of patient: address on file Patient Identification confirmed using: Name, : Yes Telehealth method: voice only Patient verbally consented to treatment: Yes Patient verbally consented to billing insurance company: Yes Patient informed of any privacy concerns related to visit: Yes Minutes spent on Phone/Video with Pt.: 7 Coding Level of Care Code Tele Est Pt Level 2 (42064) Diagnoses Abdominal pain R10.9 Elevated liver enzymes R74.8 Hyperlipidemia E78.5 Assessment & Plan Assessment & Plan (1) Abdominal pain: Code(s): R10.9 - Unspecified abdominal pain Category: Medical Plan: Abdominal pain has resolved after regimen of bowel rest Encouraged good hydration. (2) Elevated liver enzymes: Code(s): R74.8 - Abnormal levels of other serum enzymes Category: Medical Plan: Liver enzymes within normal range (3) Hyperlipidemia: Code(s): E78.5 - Hyperlipidemia, unspecified Category: Medical Plan: We discussed that his lipids were elevated at prior lab work Encouraged a diet lower in saturated fats and cholesterol Pre physical labs ordered in preparation for his complete physical in June - can review lipids at that time Plan History of elevated liver enzymes though recently within normal range and normal on most recent lab work yesterday. Had advised bowel rest regimen due to complaints of abdominal pain at his recent acute visit. Patient notes that this has helped Encouraged him to continue good hydration. Lipids were high at his prior labs in May. He can follow-up at his physical with [facility] in June 2025. Encouraged lifestyle changes. Labs ordered Orders: Orders Lipid Panel Today Z00.00 - Encounter for general adult medical examination without abnormal findings Microalbumin, Random (w Creat) Today I10 - Essential (primary) hypertension UA CC w/rflx Micro + Cult Today Z00.00 - Encounter for general adult medical examination without abnormal findings Vitamin D 25-OH Total Today E55.9 - Vitamin D deficiency, unspecified Comprehensive Tyro. Panel Fast Today Z00.00 - Encounter for general adult medical examination without abnormal findings Complete Blood Count Auto Diff Today Z00.00 - Encounter for general adult medical examination without abnormal findings Vitamin B12 and Folate Today E53.8 - Deficiency of other specified B group vitamins TSH reflex Free T4 Today Z00.00 - Encounter for general adult medical examination without abnormal findings Hemoglobin A1c Today R73.01 - Impaired fasting glucose
== END 2024-12-04 17:14 | disposition home or self-care (01) ==
LOC: HO.HMCFM 17:14
PROVIDERS: PCP Family Medicine; Visit Provider Family Medicine
DX: R10.9 Unspecified abdominal pain (principal); R74.8 Abnormal levels of other serum enzymes; E78.5 Hyperlipidemia, unspecified

== ENCOUNTER 2025-05-01 11:29 | Outpatient (AMB) | payer OTHER, SELFPAY ==
--- NOTE | 2025-05-01 11:46 | A.OFFPC_ITS ---
Vital Signs 05/01/25 11:50 Height 5 ft 11 in Weight 148 lb 8 oz BMI 20.7 BP 100/64 Blood Pressure Location Rt brachial Position Sitting Respiration 14 Pulse 78 Pulse Source Pulse Oximeter Temp 98.2 F Temp Source Temporal Artery Scan Pulse Oximetry (%) 97 Oxygen Delivery Method Room Air Intake Visit Reasons: ent referral/ear pain test Intake Note: Gómez presents in the office today for tinnitus and an ENT referral. 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 Reports a buzzing/hum, ear discomfort mostly on the L. Denies any changes to his hearing. Recent audiogram was read as normal. Notes this has been ongoing for about 2 years. [facility] Medical History No pertinent past medical history No pertinent family history Surgical History No pertinent past surgical history Social History (Updated 05/01/25 @ 11:50 by La Kim [facility]) Household Members: Family Both parents involved: Yes Caregiver staying overnight: No Housing: House Are you a primary child care assistant to a significant other at home: No Do you presently have visiting nurse or other home services: No 75 years or older and lives alone: No Alcohol intake: current Alcohol intake frequency: a few times a month Patient Tobacco Use Status: Never used Tobacco e-Cigarette/Vaping Use: Never Used Second Hand Smoke Exposure: No Use of substances other than those prescribed or required for medical reasons: No Current occupational status: employed 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 Cognitive needs: No Hearing needs: No Vision needs: No Questionnaire Thrive Questionnaire Date Thrive assessed: 01/26/25 I am a: Patient What is your living situation today?: I have a steady place to live Within the past 12 months, did the food you bought not last and you didn't have the money to get more?: Never true Within the past 12 months, did you worry whether your food would run out before you got money to buy more?: Never true Do you have trouble paying for medicines?: No Do you have trouble getting transportation to medical appointments?: No Do you have trouble paying your heating and electricity bill?: No Do you have trouble taking care of your child, family member or friend?: No Do you have trouble with day-to-day activities such as bathing, preparing meals, shopping, managing finances, etc.?: No Are you currently unemployed and looking for a job?: No Are you interested in more education?: No Please select the resources that you would like help with: None Currently or been in a relationship where the following occur: No concerns reported THRIVE Score: 0 DOUGLAS-7 AMB Questionnaire DOUGLAS-7 Date DOUGLAS - 7 assessed: 06/18/24 Source: Developed by Drs. Morgan Scales, Yesenia Siddiqui, Duran Ang and colleagues, with an educational loraine from [employer]. Review of Systems Const Denies chills, Denies fatigue, Denies fever(s), Denies headache(s) and Denies weakness ENT Denies dizziness and Denies headache(s) Card Denies dyspnea Resp Denies cough, Denies dyspnea, Denies wheezing and Denies other (shortness of breath) Musc Denies numbness and Denies tingling Neuro Denies dizziness, Denies headache(s), Denies numbness, Denies tingling and Denies weakness Psych Denies anxiety and Denies depression Endo Denies fatigue Aller/Immun Denies wheezing Physical exam (Primary Care) Vital Signs: Last Vital Signs Temp 98.2 F 05/01/25 11:50 Pulse 78 05/01/25 11:50 Resp 14 05/01/25 11:50 BP 100/64 05/01/25 11:50 Pulse Ox 97 05/01/25 11:50 Oxygen Delivery Method Room Air 05/01/25 11:50 BMI result Body Mass Index 20.7 Tobacco/Smoking Status: Tobacco use Status Tobacco use date assessed 05/01/25 05/01/25 11:52 Patient Tobacco Use Status Never used Tobacco 05/01/25 11:50 e-Cigarette/Vaping Use Never Used 05/01/25 11:50 Thrive Assessment: Date of Thrive Assessment Date Thrive assessed 06/15/24 05/01/25 11:48 Currently or been in a relationship where the following occur: No concerns reported Const General: well developed; No acute distress Nutritional Appearance: well nourished Orientation/consciousness: patient oriented x3 HENMT Head: Yes normocephalic and Yes atraumatic Eyes General: appearance normal, both eyes and all related structures Pupils: Equal, round and reactive pupils present EOM: EOMs intact bilaterally Resp Effort & Inspection: normal respiratory effort Neuro General: patient oriented x3 and gait normal Cranial nerves: Yes Equal, round and reactive pupils present Psych Affect: normal affect Coding Level of Care Code Est Pt Level 3 (18428) Diagnoses Ear discomfort H92.09 Tinnitus of both ears H93.13 Laterality: bilateral Assessment & Plan Assessment & Plan (1) Ear discomfort: Code(s): H92.09 - Otalgia, unspecified ear Category: Medical (2) Tinnitus: Code(s): H93.19 - Tinnitus, unspecified ear Category: Medical Qualifiers: Laterality: bilateral Qualified Code(s): H93.13 - Tinnitus, bilateral Plan Tinnitus and discomfort at bilateral ears, left worse than right for 1 year. Audiogram read as normal Exam normal today. Normal TMs and ear canals. Referred to ENT Orders: Referrals Ear/Nose/Throat Referral H93.13 - Tinnitus, bilateral
[2025-05-01 11:50] VITALS: BP 100/64; PULSE 78; RESP 14; TEMP 36.8; O2SAT 97; BMI 20.7
== END 2025-05-01 12:17 | disposition home or self-care (01) ==
LOC: HO.HMCFM 11:30
PROVIDERS: PCP Family Medicine; Visit Provider Family Medicine
DX: H92.09 Otalgia, unspecified ear (principal); H93.13 Tinnitus, bilateral

== ENCOUNTER → 2025-05-01 11:29 | Outpatient (BNVA) | payer OTHER, SELFPAY | PROVIDERS: PCP Family Medicine; Visit Provider Family Medicine | DX: H93.13 Tinnitus, bilateral (principal); H92.09 Otalgia, unspecified ear | CPT/HCPCS: 99212 ==